=== PATIENT | female | born 1995 | race American Indian/Alaskan Native ===

== ENCOUNTER 2018-06-27 03:06 | Emergency (ER) | payer OTHER ==
[2018-06-27 03:10] VITALS: BMI 27.3
[2018-06-27 03:18] VITALS: TEMP 98.7; O2SAT 100
--- NOTE | 2018-06-27 03:24 | ED PDOC ---
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 Patient reports contractions 1-3 minutes apart, currently 20 wks . Denies any santillan of vaginal discharge. Patient denies any vomiting, diarrhea, fever, or any other complaints at this time. AIRPLANE REFUELER: Dr. Alvarez Past Medical History - Provider Review Nursing Documentation Reviewed: Yes - Psychiatric Hx Substance Use: No Family/Social History - Physician Review Nursing Documentation Reviewed: Yes Family/Social History: No Known Family HX Smoking Status: Never Smoked Hx Alcohol Use: Yes Frequency of alcohol use: Socially Hx Substance Use: No Allergies/Home Meds Allergies/Adverse Reactions: Allergies No Known Allergies Allergy (Verified 06/27/18 03:09) Review of Systems - Physician Review All systems were reviewed & negative as marked: Yes - Review of Systems Constitutional: absent: Fevers Gastrointestinal: Other (lower pelvic pain). absent: Nausea, Vomiting Genitourinary Female: absent: Vaginal Discharge (no santillan of vaginal discharge) Physical Exam - Physical Exam Physical Exam Limitations: Other (patient will be transferred to [facility] [place] and accepting collar cutter Dr. Godfrey recommends against internal vaginal examination.) Vital Signs Reviewed: Yes Vital Signs Temp Pulse Resp BP Pulse Ox 06/27/18 03:17 98.7 F 119 H 26 H 140/71 100 Temperature: Afebrile Blood Pressure: Normal Pulse: Regular Respiratory Rate: Normal Appearance: Positive for: Well-Appearing, Non-Toxic, Comfortable Pain Distress: None Mental Status: Positive for: Alert and Oriented X 3 Medical Decision Making ED Course and Treatment: 06/27/18 03:25 Impression: 22 year old female with lower pelvic pain, 20 wks , contractions 1-3 minutes apart. Plan: -- Reassess and disposition Progress Notes: 06/27/18 03:[address] Cardozo, AIRPLANE REFUELER on-call, states at 20 wks should be transferred to [facility] [facility]. 06/27/18 03:[address] Godfrey, AIRPLANE REFUELER at [facility] [place] [place], who accepts case for transfer, directly to L&D. Recommends against internal vaginal examination. - Scribe Statement The provider has reviewed the documentation as recorded by the Mariam Mcneill Provider Scribe Attestation: All medical record entries made by the Scribe were at my direction and personally dictated by me. I have reviewed the chart and agree that the record accurately reflects my personal performance of the history, physical exam, medi gregoria decision making, and the department course for this patient. I have also personally directed, reviewed, and agree with the discharge instructions and disposition. Disposition/Present on Arrival - Present on Arrival Any Indicators Present on Arrival: No History of DVT/PE: No History of Uncontrolled Diabetes: No Urinary Catheter: No History of Decub. Ulcer: No History Surgical Site Infection Following: None - Disposition Have Diagnosis and Disposition been Completed?: Yes Diagnosis: , Pelvic pain, contractions Disposition: Transfer [facility] Disposition Time: 03:15 Patient Plan: Transfer To ([facility] [place] [facility] delivery) Condition: FAIR Forms: [employer] (Yoruba)
[2018-06-27] MEDS ORDERED: Sodium Chloride 0.9% 1,000 ML IV SCH (03:30)
[2018-06-27 03:48] VITALS: BP 138/74; PULSE 113; RESP 20
== END 2018-06-27 03:35 | disposition short-term general hospital (02) ==
LOC: ED 03:06
DX: O60.02 Preterm labor without delivery, second trimester (principal); Z3A.20 20 weeks gestation of pregnancy; R10.2 Pelvic and perineal pain